=== PATIENT | male | born 1990 | race Caucasian/White ===

== ENCOUNTER 2016-05-11 19:12 | Emergency (ER) ==
[2016-05-11 19:18] VITALS: BP 135/84; TEMP 98.9; BMI 20.7
[2016-05-11] MEDS ORDERED: LIDOCAINE 1 % AMP 5 ML (SUTURES) SQ STA (19:22)
--- NOTE | 2016-05-11 19:43 | ED.PDOC ---
General ED Provider: Dr. KAYLI PEDROZA Chief Complaint: Finger Laceration Stated Complaint: Patient is a 26 year old male hwo comes to the ER with a 2.5 cm laceraton to distal left index finger that he susutaned with a knief. Bleeding was controlled with Pressure. Time Seen by Physician: 19:30 Mode of Arrival: Walk-In Information Source: Patient Exam Limitations: No limitations Primary Care Provider: HILARY DIOR Nursing and Triage Documentation Reviewed and Agree: Yes Skin Complaint Exam - Laceration/Abrasion/Hand Complaint/Exam Location of Injury: Left, Digit #2 Mechanism of Injury: Laceration Onset/Duration: 2 hours Symptoms Are: Still present Initial Severity: Moderate Current Severity: Mild Aggravating: Movement Alleviating: Compression Associated Signs and Symptoms: Denies: Fever, Chills, Erythema, Numbness, Tingling Related History: Reports: Right hand dominant Hand Picture: 1 - linear laceration 2 cm with some bleeding Differential Diagnoses: Laceration Review of Systems - Review Of Systems Constitutional: Reports: No symptoms Eyes: Reports: No symptoms Ears, Nose, Mouth, Throat: Reports: No symptoms Respiratory: Reports: No symptoms Cardiac: Reports: No symptoms GI: Reports: No symptoms : Reports: No symptoms Musculoskeletal: Reports: No symptoms Skin: Reports: Other (laceration.) Neurological: Reports: Anxiety Endocrine: Reports: No symptoms Hematologic/Lymphatic: Reports: No symptoms All Other Systems: Reviewed and Negative Past Medical History - Past Medical History Previously Healthy: Yes Endocrine: Reports: None Cardiovascular: Reports: None Respiratory: Reports: Asthma Hematological: Reports: None Gastrointestinal: Reports: None Genitourinary: Reports: None Neuro/Psych: Reports: None Musculoskeletal: Reports: None Cancer: Reports: None - Surgical History General Surgical History: Reports: Orthopedic (asthma right knee surgery hand injuries) - Family History Family History: Reports: Unknown - Social History Smoking Status: Current every day smoker, Light tobacco smoker Hx Substance Use: No Alcohol Screening: None - Immunizations Tetanus Shot up to Date: Yes Physical Exam - Physical Exam Appearance: Well-appearing, Well-nourished Pain Distress: Mild Eyes: CHARO, EOMI, Conjunctiva clear ENT: Ears normal, Nose normal, Oropharynx normal Neck: Supple Respiratory: Respirations nonlabored Cardiovascular: Pulses normal Musculoskeletal: Normal strength, ROM intact, No edema, No calf tenderness Skin: Warm, Dry, Normal color (bleeding on the left index finger. ) Neurological: Sensation intact, Motor intact, Alert, Oriented Psychiatric: Affect appropriate, Anxious Procedures - Laceration/Wound Repair Left index finger Wound Description: Linear Wound Length (cm): 2 Wound Width: 0.2 Wound Depth: 0.3 Wound Explored: Clean Wound Irrigated: No Wound Prep: Hibiclens Anesthesia: Lidocaine Wound Margins: Flaps aligned Wound Repaired With: Sutures Suture Size and Type: ethlone 4.0 Number of Sutures: 9 (running ) Sterile Dressing Applied?: Yes Progress: Tolerated well. Critical Care Note - Critical Care Note Total Time (mins): 0 Course - Course Orders, Labs, Meds: Orders Category Date Time Status Lidocaine HCl/Pf [Lidocaine 1 % Amp 5 ml (Sutures)] MEDS 05/11/16 19:22 Discontinued 5 ml SQ ONCE STA Medications Discontinued Medications Generic Name Dose Route Start Last Admin Trade Name Som PRN Reason Stop Dose Admin Lidocaine HCl 5 ml 05/11/16 19:22 05/11/16 19:40 Lidocaine 1 % Amp 5 Ml (Sutures) SQ 05/11/16 19:23 5 ml ONCE STA Administration Vital Signs: Temp Pulse Resp BP Pulse Ox 05/11/16 19:13 98.9 F 107 H 18 135/84 98 Departure - Departure Time of Disposition: 19:40 Disposition: HOME SELF-CARE Discharge Problem: Laceration of finger Instructions: Finger Laceration (ED) Condition: Good Pt referred to PMD for follow-up: Yes Additional Instructions: Have sutures removed in 7-10 days report any signs of infection. Allergies/Adverse Reactions: Allergies No Known Allergies Allergy (Verified 05/11/16 19:19) Home Medications: Ambulatory Orders 1 [No Reported Medications] 05/11/16 Disposition Discussed With: Patient, Family
== END 2016-05-11 19:56 | disposition home or self-care (01) ==
LOC: ED 19:12
DX: S61.211A Laceration without foreign body of left index finger without damage to nail, initial encounter (principal); W26.0XXA Contact with knife, initial encounter; F17.210 Nicotine dependence, cigarettes, uncomplicated
CPT/HCPCS: 99282